=== PATIENT | male | born 1985 | race Caucasian/White ===

== ENCOUNTER 2017-03-07 03:41 | Emergency (ER) | payer MEDICAID ==
--- NOTE | 2017-03-07 04:57 | XRAY Preliminary Report ---
Exam: XR KNEE 4 VIEW RT IMPRESSION: 1. No acute abnormality seen in the knee. [facility] SITE ID: [id number]
--- NOTE | 2017-03-07 05:00 | XRAY Report ---
EXAM: RIGHT KNEE RADIOGRAPHY EXAM DATE: 03/07/2017 04:46 AM. CLINICAL HISTORY: Right knee pain. COMPARISON: None. TECHNIQUE: 4 views. FINDINGS: Bones: No acute fracture seen. Old appearing ossicle at the tibial tuberosity. Joints: No dislocation. Joint spaces appear preserved. No significant joint effusion. Soft Tissues: Grossly unremarkable. IMPRESSION: 1. No acute abnormality seen in the knee. [facility] Referring Provider Line: [phone] SITE ID: [id number]
--- NOTE | 2017-03-07 05:06 | ED Physician Documentation ---
PD HPI LOWER EXT INJURY - Stated complaint Stated Complaint: RT KNEE PAIN,SWELLING - Chief complaint Chief Complaint: Ext Problem - History obtained from History obtained from: Patient - History of Present Illness PD HPI LOW EXT INJURY LOCATION: Right, Knee Type of injury: Other (hyperextension injury.) Timing - onset: Yesterday Timing - details: Still present Worsened by: Moving, Palpating Associated symptoms: Swelling. No: Weakness, Numbness Similar symptoms before: Has not had sx before - Additional information Additional information: The patient is a 32-year-old male who presents with right knee pain. He reports hyperextending his right knee earlier today in a "sports related" injury. He denies any other injuries. He reports a prior history of left knee injury, but denies any prior history of injury to his right knee. Review of Systems Constitutional: denies: Fever Musculoskeletal: reports: Joint pain (Right knee). denies: Back pain Neurologic: denies: Focal weakness, Numbness PD PAST MEDICAL HISTORY - Past Medical History Past Medical History: No - Past Surgical History Past Surgical History: No - Present Medications Home Medications: Ambulatory Orders Medication Instructions Recorded Confirmed Home Medications Unobtainable 01/27/16 01/27/16 [HOME MEDICATIONS UNOBTAINABLE] - Allergies Allergies/Adverse Reactions: Allergies Allergy/AdvReac Type Severity Reaction Status Date / Time No Known Drug Allergies Allergy Verified 01/27/16 03:45 - Social History Does the pt smoke?: No Smoking Status: Never smoker - Immunizations Immunizations: TDAP >10years/unknown - POLST Patient has POLST: No PD ED PE NORMAL - Vitals Vital signs reviewed: Yes (Normal) - General General: Alert and oriented X 3, Well developed/nourished - HEENT HEENT: Atraumatic - Respiratory Respiratory: No respiratory distress - Derm Derm: No rash - Extremities Extremities: No deformity, No edema, No calf tenderness / cord, Other (There is tenderness to palpation at the infrapatellar aspect of the right knee. There is also slight tenderness along the medial joint line. He is able to fully extend his knee and can flex to 90. There is no ligamentous instability detected. Distal neurovascular is intact.) - Neuro Neuro: Alert and oriented X 3, No motor deficit, No sensory deficit Results - Vitals Vitals: Vital Signs - 24 hr 03/07/17 03/07/17 03:47 05:27 Temperature 37.4 C Heart Rate 77 71 Respiratory 18 18 Rate Blood Pressure 135/76 H 127/69 O2 Saturation 99 100 Oxygen O2 Source Room air - Rads (name of study) right knee Radiology: Prelim report reviewed, EMP read contemporaneously, See rad report ( No acute abnormality seen in the knee.) PD MEDICAL DECISION MAKING - ED course Complexity details: reviewed results, re-evaluated patient, considered differential, d/w patient ED course: The patient's presentation is most consistent with strain of his right knee from hyperextension injury. There is no evidence of bony injury on x-ray examination. Treatment in the emergency department included application of a knee immobilizer. Ibuprofen 800 mg was administered orally. 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 Departure - Departure Disposition: 01 Home, Self Care Clinical Impression: Strain of right knee Qualifiers: Encounter type: initial encounter Qualified Code(s): S86.911A - Strain of unspecified muscle(s) and tendon(s) at lower leg level, right leg, initial encounter Condition: Stable Instructions: ED Sprain Knee Follow-Up: [facility] [Provider Group] Comments: Use the knee immobilizer if it provides comfort. Apply ice pack to your knee intermittently for the next 4 days. You can use ibuprofen, up to 800 mg 3 times daily for its anti-inflammatory effect. Follow up with primary physician or with the credentials specialist within 2 weeks if not significantly improved. Call to schedule an appointment. Return to the emergency department if you develop increasing pain or swelling, or otherwise worsening symptoms. Forms: Activity restrictions Discharge Date/Time: 03/07/17 05:28
[2017-03-07] MEDS: IBUPROFEN 800 MG TABLET PO STA (05:14)
[2017-03-07] MEDS ORDERED: IBUPROFEN 800 MG TABLET PO ONE (05:18)
[2017-03-07 05:29] VITALS: BP 127/69
== END 2017-03-07 05:28 | disposition home or self-care (01) ==
LOC: ED 03:41
DX: S86.911A Strain of unspecified muscle(s) and tendon(s) at lower leg level, right leg, initial encounter (principal); X50.9XXA Other and unspecified overexertion or strenuous movements or postures, initial encounter
CPT/HCPCS: 29530; 99283

== ENCOUNTER 2017-08-15 08:00 | Outpatient (CLI) | payer MEDICAID ==
[2017-08-15 19:31] LABS: BASOPHILS % (AUTO) 0.4 %; EOSINOPHILS % (AUTO) 0.9 %; HGB - HEMOGLOBIN 14.4 g/dL (14.0-18.0); LYMPHOCYTES # (AUTO) 1.9 10^3/uL (1.5-3.5); LYMPHOCYTES % (AUTO) 40.3 %; MEAN CORPUSCULAR HEMOGLOBIN 30.3 pg (27.0-31.0); MEAN CORPUSCULAR HGB CONC 32.5 g/dL (32.0-36.0); MEAN CORPUSCULAR VOLUME 93.4 fL (80.0-94.0); MEAN PLATELET VOLUME 8.7 fL (7.4-11.4); MONOCYTES # (AUTO) 0.4 10^3/uL (0.0-1.0); MONOCYTES % (AUTO) 8.2 %; NEUTROPHILS # (AUTO) 2.4 10^3/uL (1.5-6.6); NEUTROPHILS % (AUTO) 50.2 %; PLT - PLATELET COUNT 199 10^3/uL (130-450); RED BLOOD COUNT 4.75 10^6/uL (4.70-6.10); RED CELL DISTRIBUTION WIDTH 13.4 % (12.0-15.0); WHITE BLOOD COUNT 4.8 x10^3/uL (4.8-10.8)
[2017-08-15 19:50] LABS: ALBUMIN/GLOBULIN RATIO 1.2 (1.0-2.2); BILIRUBIN,TOTAL 0.7 mg/dL (0.2-1.0); CREATININE 0.9 mg/dL (0.6-1.2); TOTAL PROTEIN 7.3 g/dL (6.7-8.2)
[2017-08-16 13:41] LABS: HIV AG/AB 4TH GEN NON-REACTIVE (NON-REACTIVE)
[2017-08-16 13:42] LABS: HEPATITIS C ANTIBODY REACTIVE (NON-REACTIVE)
== END 2017-08-15 08:01 ==
LOC: LAB.N 08:00
PROVIDERS: ATTEND Nurse Practitioner
DX: Z72.51 High risk heterosexual behavior (principal); M25.50 Pain in unspecified joint
CPT/HCPCS: 36415; 80053; 81599; 85025; 86695; 86696; 86803; 87389; 87491; 87591

== ENCOUNTER 2017-08-27 16:23 | Outpatient (CLI) | payer MEDICAID | END 2017-08-27 16:24 | disposition critical access hospital (66) | LOC: EMS 16:23 | PROVIDERS: ATTEND Surgery | DX: R42 Dizziness and giddiness (principal); R46.4 Slowness and poor responsiveness | CPT/HCPCS: A0425; A0427 ==

== ENCOUNTER 2017-08-27 16:45 | Emergency (ER) | payer MEDICAID ==
--- NOTE | 2017-08-27 17:18 | ED Physician Documentation ---
History of Present Illness - Stated complaint Stated Complaint: SYNCOPE - Chief complaint Chief Complaint: Cardiac - Additonal information Additional information: hx from pt 32 male BIBA after syncope at restaurant was seated eating and fell off chair and hit his head several min LOC per EMS but per SO more like 15 sec no seizure reported no CPR etc per SO he was breathing throughout so presumably had a pulse recovered uneventfully, no post ictal period pt denies any prodrome such as CP or palp states he has had syncopal epsidoes just like this since he was a child states he has had some work up but he doesn't know what - he is certain he has never had an ultrasound of his heart or an echocardiogram though plays sports (basketball) without dyspnea CP or easy fatigue no recent illness except a minor cold for which he is not taking OTC meds no recent med changes Review of Systems Constitutional: denies: Fever Cardiac: denies: Chest pain / pressure, Palpitations Respiratory: denies: Dyspnea GI: denies: Abdominal Pain, Nausea, Vomiting, Diarrhea Musculoskeletal: denies: Neck pain Neurologic: reports: Syncope, Head injury. denies: Seizure, Headache Endocrine: denies: Easy bruising / bleeding PD PAST MEDICAL HISTORY - Past Surgical History Past Surgical History: No - Present Medications Home Medications: Ambulatory Orders Medication Instructions Recorded Confirmed Home Medications Unobtainable 01/27/16 08/27/17 [HOME MEDICATIONS UNOBTAINABLE] - Allergies Allergies/Adverse Reactions: Allergies Allergy/AdvReac Type Severity Reaction Status Date / Time No Known Drug Allergies Allergy Verified 08/27/17 17:03 - Social History Does the pt smoke?: No Smoking Status: Never smoker - Immunizations Immunizations: TDAP >10years/unknown - POLST Patient has POLST: No PD ED PE NORMAL - Vitals Vital signs reviewed: Yes - General General: Alert and oriented X 3 - HEENT HEENT: Atraumatic (non tender no bruise or swelling) - Neck Neck: No bony TTP - Cardiac Cardiac: RRR, No murmur - Respiratory Respiratory: No respiratory distress, Clear bilaterally - Abdomen Abdomen: Soft, Non tender - Derm Derm: Normal color - Neuro Neuro: Alert and oriented X 3, healthcare associate 2-12 intact, No motor deficit, No sensory deficit, Normal speech Results - Vitals Vitals: Vital Signs - 24 hr 08/27/17 08/27/17 08/27/17 16:50 16:56 17:35 Temperature 36.8 C Heart Rate 65 62 Respiratory 18 18 Rate Blood Pressure 119/81 H 120/60 Blood Pressure 119/78 [Left] Blood Pressure 116/74 [Right] O2 Saturation 100 100 08/27/17 08/27/17 17:45 18:50 Temperature 36.7 C Heart Rate 65 77 Respiratory 16 15 Rate Blood Pressure 139/78 H 121/73 Blood Pressure [Left] Blood Pressure [Right] O2 Saturation 98 99 Oxygen O2 Source Room air - EKG (time done) 1648 Rate: Rate (enter#) (57) Rhythm: Atrial flutter Intervals: Normal CO Ischemia: Non specific changes (diffuse ST elev could be pericarditis except he is not sick, no fever, no CP and similar to prior EKG 01/27/16) Other comments: Other comments (no delta waves) - Labs Labs: Laboratory Tests 08/27/17 08/27/17 08/27/17 18:20 18:20 18:20 WBC 8.3 RBC 5.05 Hgb 15.4 Hct 46.5 MCV 92.0 MCH 30.6 MCHC 33.2 RDW 13.3 Plt Count 197 MPV 8.5 Neut # 6.2 Lymph # 1.3 L Edgar # 0.7 Eos # 0.1 Baso # 0.0 Absolute Nucleated RBC 0.00 Nucleated RBC % 0.0 Sodium 135 Potassium 4.0 Chloride 100 L Carbon Dioxide 29 Anion Gap 6.0 BUN 12 Creatinine 1.1 Estimated GFR (MDRD) 78 L Glucose 80 Calcium 9.2 Troponin I < 0.04 - Rads (name of study) CXR Radiology: See rad report (no) PD MEDICAL DECISION MAKING - ED course ED course: recurrent syncope over many many years today same as before no injury NSR on EKG and monitor no delta wave no prolonged QT no block doubt hypertrophic cardiomyoapythy as he does not have sx with exertion do think event monitor and echo would be prudent but feel that given hx of same and nl ER wup, it is safe to dc for this to be pursued as an outpt Departure - Departure Disposition: 01 Home, Self Care Clinical Impression: Syncope Qualifiers: Syncope type: unspecified Qualified Code(s): R55 - Syncope and collapse Condition: Good Instructions: ED Fainting Unkn Cause Comments: Today your EKG and cardiac monitoring and xray and labs were fine So you an go home for now I do think it would be a good idea for you to have further testing done as an outpatient - specifically to have a wear at home heart monitor and get an ultrasound of your heart. If that does not show any cause, perhaps a neurology evaluation to see if these episodes may be an atypical form of seizures. I would suggest that you not drive until this is figured out as you might pass out and crash and get hurt or hurt someone else
--- NOTE | 2017-08-27 17:54 | XRAY Preliminary Report ---
Exam: XR CHEST 2 VIEW X-RAY IMPRESSION: Normal 2-view chest radiography. [facility] SITE ID: [id number]
--- NOTE | 2017-08-27 17:55 | XRAY Report ---
EXAM: CHEST RADIOGRAPHY EXAM DATE: 08/27/2017 05:27 PM. CLINICAL HISTORY: Syncope. COMPARISON: None. TECHNIQUE: 2 views. FINDINGS: Lungs/Pleura: No focal opacities evident. No pleural effusion. No pneumothorax. Normal volumes. Mediastinum: Heart and mediastinal contours are unremarkable. Other: None. IMPRESSION: Normal 2-view chest radiography. [facility] Referring Provider Line: [phone] SITE ID: [id number]
[2017-08-27 18:34] LABS: BASOPHILS % (AUTO) 0.5 %; EOSINOPHILS # (AUTO) 0.1 10^3/uL (0.0-0.7); EOSINOPHILS % (AUTO) 0.8 %; HGB - HEMOGLOBIN 15.4 g/dL (14.0-18.0); LYMPHOCYTES # (AUTO) 1.3 10^3/uL (1.5-3.5); LYMPHOCYTES % (AUTO) 15.8 %; MEAN CORPUSCULAR HEMOGLOBIN 30.6 pg (27.0-31.0); MEAN CORPUSCULAR HGB CONC 33.2 g/dL (32.0-36.0); MEAN PLATELET VOLUME 8.5 fL (7.4-11.4); MONOCYTES # (AUTO) 0.7 10^3/uL (0.0-1.0); MONOCYTES % (AUTO) 8.3 %; NEUTROPHILS # (AUTO) 6.2 10^3/uL (1.5-6.6); NEUTROPHILS % (AUTO) 74.6 %; PLT - PLATELET COUNT 197 10^3/uL (130-450); RED BLOOD COUNT 5.05 10^6/uL (4.70-6.10); RED CELL DISTRIBUTION WIDTH 13.3 % (12.0-15.0); WHITE BLOOD COUNT 8.3 x10^3/uL (4.8-10.8)
[2017-08-27 18:41] LABS: CALCIUM 9.2 mg/dL (8.5-10.3); CREATININE 1.1 mg/dL (0.6-1.2)
[2017-08-27 19:15] VITALS: BP 112/74
== END 2017-08-27 19:15 | disposition home or self-care (01) ==
LOC: EDUNIT# → ED 16:45
DX: R55 Syncope and collapse (principal); I45.81 Long QT syndrome
CPT/HCPCS: 36415; 71046; 80048; 84484; 85025; 93005; 99284

== ENCOUNTER 2017-08-29 09:00 | Outpatient (CLI) | payer MEDICAID | END 2017-08-29 09:30 | disposition home or self-care (01) | LOC: RT.N 09:00 | PROVIDERS: ATTEND Nurse Practitioner | DX: I30.9 Acute pericarditis, unspecified (principal) | CPT/HCPCS: 93005 ==

== ENCOUNTER 2017-08-29 10:06 | Outpatient (CLI) | payer MEDICAID ==
[2017-08-29 13:16] LABS: BASOPHILS % (AUTO) 0.3 %; EOSINOPHILS % (AUTO) 0.8 %; HGB - HEMOGLOBIN 14.6 g/dL (14.0-18.0); LYMPHOCYTES # (AUTO) 1.7 10^3/uL (1.5-3.5); LYMPHOCYTES % (AUTO) 34.6 %; MEAN CORPUSCULAR HEMOGLOBIN 30.9 pg (27.0-31.0); MEAN CORPUSCULAR HGB CONC 33.5 g/dL (32.0-36.0); MEAN CORPUSCULAR VOLUME 92.4 fL (80.0-94.0); MEAN PLATELET VOLUME 8.7 fL (7.4-11.4); MONOCYTES # (AUTO) 0.5 10^3/uL (0.0-1.0); MONOCYTES % (AUTO) 11.2 %; NEUTROPHILS # (AUTO) 2.5 10^3/uL (1.5-6.6); NEUTROPHILS % (AUTO) 53.1 %; PLT - PLATELET COUNT 189 10^3/uL (130-450); RED CELL DISTRIBUTION WIDTH 13.3 % (12.0-15.0); WHITE BLOOD COUNT 4.8 x10^3/uL (4.8-10.8)
[2017-08-29 13:24] LABS: ALBUMIN 4.1 g/dL (3.2-5.5); ALBUMIN/GLOBULIN RATIO 1.2 (1.0-2.2); BILIRUBIN,TOTAL 0.7 mg/dL (0.2-1.0); CALCIUM 8.8 mg/dL (8.5-10.3); TOTAL PROTEIN 7.4 g/dL (6.7-8.2)
== END 2017-08-29 10:07 | disposition home or self-care (01) ==
LOC: LAB.N 10:06
PROVIDERS: ATTEND Nurse Practitioner
DX: I30.9 Acute pericarditis, unspecified (principal)
CPT/HCPCS: 36415; 80053; 85025

== ENCOUNTER 2017-11-08 13:24 | Emergency (ER) | payer MEDICAID ==
--- NOTE | 2017-11-08 13:37 | ED Physician Documentation ---
PD HPI UPPER EXT INJURY - Stated complaint Stated Complaint: RT FINGER PAIN - Chief complaint Chief Complaint: Ext Problem - History obtained from History obtained from: Patient - History of Present Illness Location: Right, Finger (ring finger) Type of injury: Blunt / blow (jammed finger a month ago and it looked angled/ dislocated, so he pulled it back into place. It has remained swollen but still usable (stiff and hurts).) Timing - onset: How many months ago Timing - details: Abrupt onset, Still present Worsened by: Moving (he can flex it but not fully due to swelling and it hurts with use.), Palpating Associated symptoms: Swelling. No: Weakness, Numbness Similar symptoms before: Has not had sx before Recently seen: Not recently seen Review of Systems Neurologic: denies: Focal weakness, Numbness PD PAST MEDICAL HISTORY - Past Medical History Musculoskeletal: None - Past Surgical History Past Surgical History: No - Present Medications Home Medications: Ambulatory Orders Medication Instructions Recorded Confirmed No Known Home Medications [No 11/08/17 11/08/17 Known Home Medications] - Allergies Allergies/Adverse Reactions: Allergies Allergy/AdvReac Type Severity Reaction Status Date / Time No Known Drug Allergies Allergy Verified 11/08/17 13:30 - Social History Does the pt smoke?: No Smoking Status: Never smoker - Immunizations Immunizations: TDAP >10years/unknown - POLST Patient has POLST: No PD ED PE NORMAL - Vitals Vital signs reviewed: Yes - General General: Alert and oriented X 3, No acute distress, Well developed/nourished - Derm Derm: Normal color, Warm and dry - Extremities Extremities: Other (riht ring finger with swelling at PIP, with some tenderness and slight prominence of bone volar area.) - Neuro Neuro: No motor deficit (he is able to flex at all joints, but is not full flexion at PIP, seems due to swelling. Gets almost full flexion but not able to get finger into tight fist. ), No sensory deficit Results - Vitals Vitals: Oxygen O2 Source Room air - Rads (name of study) right ring finger Radiology: Prelim report reviewed PD MEDICAL DECISION MAKING - ED course Complexity details: reviewed results, considered differential, d/w patient - Sepsis Event Vital Signs: Oxygen O2 Source Room air Departure - Departure Disposition: 01 Home, Self Care Clinical Impression: Volar plate injury of finger Qualifiers: Encounter type: initial encounter Qualified Code(s): S63.639A - Sprain of interphalangeal joint of unspecified finger, initial encounter Avulsion fracture of middle phalanx of finger Qualifiers: Encounter type: initial encounter Fracture type: closed Qualified Code(s): S62.629A - Displaced fracture of medial phalanx of unspecified finger, initial encounter for closed fracture Condition: Stable Record reviewed to determine appropriate education?: Yes Instructions: ED Fx Finger Closed Follow-Up: Chan Gómez MD [Provider Admit Priv/Credential] - Comments: Finger splint and quintin tape for that finger when you are active or at work for the next couple of weeks. See if the swelling goes down with more protected use of it. Tylenol or ibuprofen if needed for pains. Recheck with orthopedics if swelling has not gone down pretty well in the next week or so. Discharge Date/Time: 11/08/17 14:34
[2017-11-08 13:51] VITALS: BP 125/67
--- NOTE | 2017-11-08 14:11 | XRAY Report ---
Procedure Date: 11/08/2017 Accession Number: [id number] / [id number] Procedure: XR - Finger(s) RT CPT Code: FULL RESULT: EXAM: RIGHT FOURTH DIGIT RADIOGRAPHY EXAM DATE: 11/08/2017 01:54 PM. CLINICAL HISTORY: Broke ring finger a month ago, reset it himself. COMPARISON: None. TECHNIQUE: 3 views. FINDINGS: Bones: Minimally displaced fracture along the volar surface of the fourth middle phalangeal base best seen on lateral view. Otherwise unremarkable. Joints: Normal. No subluxations. Soft Tissues: Soft tissue swelling. IMPRESSION: Fourth middle phalangeal volar plate fracture. [facility]
== END 2017-11-08 14:34 | disposition home or self-care (01) ==
LOC: ED 13:24
DX: S63.639A Sprain of interphalangeal joint of unspecified finger, initial encounter (principal); S62.624A Displaced fracture of middle phalanx of right ring finger, initial encounter for closed fracture; W23.0XXA Caught, crushed, jammed, or pinched between moving objects, initial encounter
CPT/HCPCS: 73140; 99282; 99283

== ENCOUNTER 2019-08-15 17:47 | Outpatient (CLI) | payer SELFPAY | END 2019-08-15 17:48 | disposition home or self-care (01) | LOC: COV 17:47 | PROVIDERS: ATTEND Family Medicine | DX: R05 Cough (principal); Z20.828 Contact with and (suspected) exposure to other viral communicable diseases ==